=== PATIENT | male | born 1965 | race Asian ===

== ENCOUNTER 2017-08-23 07:59 | Emergency (ER) | payer SELFPAY ==
[~2017-08-23] VITALS: Ht 180.3 cm; Wt 159.0 kg
[2017-08-23 08:23] VITALS: BP 155/90
== END 2017-08-23 08:47 | disposition home or self-care (01) ==
LOC: EMS 08:02
DX: S83.206A Unspecified tear of unspecified meniscus, current injury, right knee, initial encounter (principal); X58.XXXA Exposure to other specified factors, initial encounter; Y93.89 Activity, other specified; Y92.89 Other specified places as the place of occurrence of the external cause; Y99.8 Other external cause status
CPT/HCPCS: 99283

== ENCOUNTER 2017-08-27 09:14 | Emergency (ER) | payer SELFPAY ==
[~2017-08-27] VITALS: Ht 180.3 cm; Wt 154.5 kg
[2017-08-27] MEDS ORDERED: HYDR-309 PO (09:31)
[2017-08-27 10:36] VITALS: BP 148/66
== END 2017-08-27 10:42 | disposition home or self-care (01) ==
LOC: EMS 10:30
DX: M25.561 Pain in right knee (principal); F13.10 Sedative, hypnotic or anxiolytic abuse, uncomplicated
CPT/HCPCS: 99281

== ENCOUNTER → 2023-02-28 | Emergency (ER) | payer OTHER ==
[~2023-02-28] VITALS: Ht 180.3 cm; Wt 154.6 kg
[~2023-02-28] MED LIST: ACETAMINOPHEN 500 MG TABLET PO ONE; ASPIRIN 325 MG TABLET PO ONE; FAMOTIDINE 10 MG/ML 2 ML VIAL IVP ONE; HYDR-309 PO; IOHEXOL 350 MG/ML 100 ML VIAL ONE; MAG HYDROX/AL HYDROX/SIMETH 30 ML SUSP UDCUP PO ONE; MORPHINE SULFATE 2 MG/ML SYRINGE IVP ONE; MORPHINE SULFATE 4 MG/ML SYRINGE IVP ONE; SODIUM CHLORIDE 0.9% 100 ML ONE
[2023-02-28 23:20] LABS: BASOPHILS % (AUTO) 0.7 % (0.0-2.0); EOSINOPHILS % (AUTO) 4.3 % (1.0-6.0); HEMATOCRIT 39.5 % (41-53); HEMOGLOBIN 13.3 g/dL (13.5-17.5); LYMPHOCYTES % (AUTO) 17.5 % (22.0-44.0); MEAN CORPUSCULAR HEMOGLOBIN 30.5 pg (26.0-34.0); MEAN CORPUSCULAR HGB CONC 33.7 G/dL (31.0-37.0); MEAN CORPUSCULAR VOLUME 90 fL (80-100); MONOCYTES # (AUTO) 0.8 K/uL (0.1-1.0); NEUTROPHILS % (AUTO) 70.5 % (40.0-70.0); PLATELET COUNT (AUTO) 358 K/uL (150-450); RED BLOOD CELL COUNT(AUTO) 4.37 MIL/uL (4.50-5.90); RED CELL DISTRIBUTION WIDTH 13.6 % (11.5-14.5)
[2023-02-28 23:24] LABS: ANION GAP 3 mmol/L (8-16); CALCIUM, TOTAL 8.6 mg/dL (8.8-10.5); CARBON DIOXIDE 30 mmol/L (22-29); CHLORIDE 104 mmol/L (98-107); CREATININE 0.95 mg/dL (0.60-1.30); GLOMERULAR FILTR. RATE CALC > 60 mL/min (>60); GLUCOSE,RANDOM 101 mg/dL (70-110); POTASSIUM 3.6 mmol/L (3.5-5.1); SODIUM SERUM 137 mmol/L (136-145); UREA NITROGEN, BLOOD 12 mg/dL (7-18)
[2023-02-28 23:49] LABS: ALANINE AMINOTRANSFERASE 28 U/L (12-78); ALBUMIN 3.8 g/dL (3.4-5.0); ALKALINE PHOSPHATASE 86 U/L (46-116); ASPARTATE AMINOTRANSFERASE 15 U/L (15-37); BILIRUBIN,TOTAL 0.6 mg/dL (0.1-1.0); CREATINE KINASE, TOTAL ONLY 223 U/L (39-308); TOTAL PROTEIN, SERUM 7.1 g/dL (6.4-8.2)
[2023-03-01] LABS: B-TYPE NATRIURETIC PEPTIDE 5 pg/mL (0-100)
[2023-03-01 00:44] LABS: COVID AG,FIA SOURCE NASOPHARYNGEAL
[2023-03-01 09:51] VITALS: BP 112/63
== END | disposition still patient (30) ==
LOC: EMS 21:52
DX: R07.2 Precordial pain (principal); F12.90 Cannabis use, unspecified, uncomplicated; Z98.890 Other specified postprocedural states; Z20.822 Contact with and (suspected) exposure to COVID-19
CPT/HCPCS: 99285; 71260; 96374; 71045; 96375; 87426; 80053; 82550; 83880; 84484; 85025; 36415; 72193; 74160; 93005; J3490; J2270; Q9967; J7050